=== PATIENT | female | born 1935 | race Caucasian/White ===

== ENCOUNTER 2019-07-26 13:58 | Inpatient (IN) | payer OTHER ==
[~2019-07-26] VITALS: Ht 165.1 cm; Wt 82.6 kg
--- NOTE | 2019-07-26 14:21 | NUR ---
PTE REFIERE DOLOR ABDOMINAL Y VOMITOS SE JAMIN S/V YSE UBIAC ENAREA DE OBSERVACION
--- NOTE | 2019-07-26 16:08 | NUR ---
PT ALERTA Y ORIENTADA X3 ESFERAS SE LE ORIENTA SOBRE TX Y REFIERE ENTEDER. SE JAMIN MUESTRAS DE VANESSA Y VENOPUNCION CON TECNICAS ASEPTICAS. SE ADMINISTRAN MEDICAMENTOS E IVLFUIDS ORDENADOS. PT TOLERA TX. PT MANEJADA POR MS CASTLE. PENDIENTE REALIZAR CT PROTOCOLO.
[2019-08-09] MEDS ORDERED: POM (MEDICAMENTO EN PO (14:11)
[2019-08-09] MEDS ORDERED: SERTRALINE HCL100 MG PO (14:11)
[2019-08-09] MEDS ORDERED: ZOFRAN8 MG PO (14:11)
[2019-08-09] MEDS ORDERED: AVAPRO150 MG PO (14:11)
[2019-08-09] MEDS ORDERED: LEVOTHYROXINE100 MCG PO (14:11)
== END 2019-08-12 19:55 | disposition home or self-care (01) | DRG 445 ==
LOC: ER 13:58 → SEC-K 18:48 → SURG 18:48 → MEDJ 18:48 → SURG 07-27 09:17 → MEDJ 07-29 13:09
PROVIDERS: ADMIT Internal Medicine
PROC: BW21ZZZ Computerized Tomography (CT Scan) of Abdomen and Pelvis (ICD-10-PCS; principal; 2019-07-26)
PROC: 3E0F7GC Introduction of Other Therapeutic Substance into Respiratory Tract, Via Natural or Artificial Opening (ICD-10-PCS; 2019-07-28)
PROC: 0F9430Z Drainage of Gallbladder with Drainage Device, Percutaneous Approach (ICD-10-PCS; 2019-08-01)
PROC: BW40ZZZ Ultrasonography of Abdomen (ICD-10-PCS; 2019-08-05)
DX: K80.00 Calculus of gallbladder with acute cholecystitis without obstruction (principal); E87.1 Hypo-osmolality and hyponatremia; E86.0 Dehydration; E87.6 Hypokalemia; E11.65 Type 2 diabetes mellitus with hyperglycemia; B95.2 Enterococcus as the cause of diseases classified elsewhere

== ENCOUNTER → 2019-09-20 | Outpatient (CLI) | payer OTHER ==
[~2019-09-20] MED LIST: AVAPRO150 MG PO; LEVOTHYROXINE100 MCG PO; POM (MEDICAMENTO EN PO; SERTRALINE HCL100 MG PO; ZOFRAN8 MG PO
== END | disposition home or self-care (01) ==
LOC: RX STUDY 09-19 11:45
DX: K80.11 Calculus of gallbladder with chronic cholecystitis with obstruction (principal)

== ENCOUNTER 2019-10-21 11:22 | Outpatient (CLI) | payer OTHER | END 2019-10-21 11:29 | disposition home or self-care (01) | LOC: SONOGRAMA 11:22 | DX: E04.2 Nontoxic multinodular goiter (principal) ==